=== PATIENT | male | born 1985 | race Caucasian/White ===

== ENCOUNTER 2019-01-21 13:09 | Emergency (ER) | payer SELFPAY ==
[~2019-01-21] VITALS: Ht 175.3 cm; Wt 79.7 kg
[2019-01-21 13:35] VITALS: BP 143/93
== END 2019-01-21 14:54 | disposition home or self-care (01) ==
LOC: ED 14:47
DX: J02.0 Streptococcal pharyngitis (principal); Z72.9 Problem related to lifestyle, unspecified; F17.210 Nicotine dependence, cigarettes, uncomplicated
CPT/HCPCS: 87880; 99283